=== PATIENT | female | born 1980 | race Hispanic/Latino ===

== ENCOUNTER → 2022-06-17 | Outpatient (CLI) | payer OTHER ==
[~2022-06-17] VITALS: Ht 27.9 cm; Wt 79.8 kg
== END | disposition home or self-care (01) ==
LOC: DTH 13:01
PROVIDERS: ATTEND Surgery
DX: Z71.3 Dietary counseling and surveillance (principal); K76.0 Fatty (change of) liver, not elsewhere classified; K21.9 Gastro-esophageal reflux disease without esophagitis; R73.03 Prediabetes; G47.33 Obstructive sleep apnea (adult) (pediatric); E66.09 Other obesity due to excess calories; Z68.35 Body mass index [BMI] 35.0-35.9, adult
CPT/HCPCS: 97802

== ENCOUNTER → 2022-07-13 | Outpatient (CLI) | payer OTHER | END | disposition home or self-care (01) | LOC: DTH 12:24 | PROVIDERS: ATTEND Surgery | DX: Z71.3 Dietary counseling and surveillance (principal); K76.0 Fatty (change of) liver, not elsewhere classified; K21.9 Gastro-esophageal reflux disease without esophagitis; G47.33 Obstructive sleep apnea (adult) (pediatric); R73.03 Prediabetes; E66.09 Other obesity due to excess calories; Z68.35 Body mass index [BMI] 35.0-35.9, adult | CPT/HCPCS: 97803 ==

== ENCOUNTER → 2022-08-15 | Outpatient (CLI) | payer OTHER | END | disposition home or self-care (01) | LOC: DTH 10:53 | PROVIDERS: ATTEND Surgery | DX: Z71.3 Dietary counseling and surveillance (principal); K76.0 Fatty (change of) liver, not elsewhere classified; K21.9 Gastro-esophageal reflux disease without esophagitis; G47.33 Obstructive sleep apnea (adult) (pediatric); R73.03 Prediabetes; E66.09 Other obesity due to excess calories; Z68.35 Body mass index [BMI] 35.0-35.9, adult | CPT/HCPCS: 97803 ==

== ENCOUNTER → 2022-10-14 | Outpatient (CLI) | payer OTHER | END | disposition home or self-care (01) | LOC: DTH 11:53 | PROVIDERS: ATTEND Surgery | DX: Z71.3 Dietary counseling and surveillance (principal); K76.0 Fatty (change of) liver, not elsewhere classified; K21.9 Gastro-esophageal reflux disease without esophagitis; G47.33 Obstructive sleep apnea (adult) (pediatric); R73.03 Prediabetes; E66.09 Other obesity due to excess calories; Z68.35 Body mass index [BMI] 35.0-35.9, adult | CPT/HCPCS: 97803 ==

== ENCOUNTER → 2022-11-04 | Outpatient (CLI) | payer OTHER | END | disposition home or self-care (01) | LOC: DTH 12:54 | PROVIDERS: ATTEND Surgery | DX: Z71.3 Dietary counseling and surveillance (principal); K76.0 Fatty (change of) liver, not elsewhere classified; K21.9 Gastro-esophageal reflux disease without esophagitis; G47.33 Obstructive sleep apnea (adult) (pediatric); R73.03 Prediabetes; E66.09 Other obesity due to excess calories; Z68.35 Body mass index [BMI] 35.0-35.9, adult | CPT/HCPCS: 97803 ==

== ENCOUNTER 2024-12-10 10:37 | Day surgery (SDC) | payer OTHER ==
[2024-12-10] VITALS (11 sets, daily range): BP systolic 97–135; BP diastolic 59–77; PULSE 60–86; RESP 14–16; TEMP 97.1–206.8
[~2024-12-10 10:37] MED LIST: 0.9%NACL 1000ML 1,000 ML IV ONE
[2024-12-10] MEDS: 0.9%NACL 1000ML 1,000 ML IV ONE (11:40)
[2024-12-10] MEDS ORDERED: FENTanyl CITRate PF 50 MCG/1 ML 2ML VIAL ONE (13:41)
[2024-12-10] MEDS ORDERED: proPOFol 10 MG/ML 20ML VIAL IV ONE ×2 (13:42)
[2024-12-10] MEDS ORDERED: metoCLOPRAmide 10 MG/2 ML VIAL ONE (13:42)
== END 2024-12-10 15:05 | disposition home or self-care (01) ==
LOC: ENDO 10:37 → DAH 10:37 → ENDO 15:05
PROVIDERS: ATTEND Internal Medicine Gastroenterology
DX: R14.0 Abdominal distension (gaseous) (principal); K29.50 Unspecified chronic gastritis without bleeding; R14.2 Eructation; K21.00 Gastro-esophageal reflux disease with esophagitis, without bleeding; K29.00 Acute gastritis without bleeding; R14.3 Flatulence; Z86.0100 Personal history of colon polyps, unspecified; Z86.16 Personal history of COVID-19; Z98.51 Tubal ligation status; Z98.890 Other specified postprocedural states; Z79.899 Other long term (current) drug therapy
CPT/HCPCS: 43239; 81025; 88305; 88312; J3010; J7030 ×3; J2704 ×2; J2765; A4620; A4215 ×2; A4223; A4222; A4221; A4663; A4606; J3490